=== PATIENT | male | born 1980 | race Caucasian/White ===

== ENCOUNTER 2018-04-21 08:22 | Emergency (ER) | payer BC ==
[2018-04-21 08:46] VITALS: BMI 26.5
[2018-04-21] MEDS ORDERED: SODIUM CHLORIDE 1,000 ML IV STA (09:12)
[2018-04-21] MEDS ORDERED: ACETAMINOPHEN 1000 MG/100 ML VIAL (NON FORMULARY) IVPB ONE (09:12)
--- NOTE | 2018-04-21 09:27 | PDOC ---
History of Present Illness - General Chief Complaint: Pain, Acute Stated Complaint: PAIN IN STOMACH/FEVER Time Seen by Provider: 04/21/18 08:53 History Source: Patient Exam Limitations: No Limitations - History of Present Illness Initial Comments: 04/21/18 09:21 Patient is 38M with no significant medical history here today complaining of 3 days of fever and lower abdominal pain. Patient endorses associated diarrhea with small amount of bright red blood and subjective fevers. Denies nausea, vomiting. Denies dysuria and testicular pain. Denies prior surgery. Last bowel movement yesterday. Denies flank pain. Past History - Past Medical History Allergies/Adverse Reactions: Allergies Allergy/AdvReac Type Severity Reaction Status Date / Time Iodinated Contrast- Oral and Allergy Mild Itching Verified 04/21/18 12:00 IV Dye iodine Allergy Itching Verified 04/21/18 12:00 shrimp Allergy Itching Verified 04/21/18 12:00 Home Medications: Ambulatory Orders NK [No Known Home Medication] 04/21/18 COPD: No - Suicide/Smoking/Psychosocial Hx Smoking History: Current some day smoker Number of Cigarettes Smoked Daily: 1 Information on smoking cessation initiated: Yes 'Breaking Loose' booklet given: 04/21/18 Hx Alcohol Use: No Drug/Substance Use Hx: No Review of Systems - Review of Systems Comments:: 04/21/18 09:27 GENERAL/CONSTITUTIONAL: +fever No chills. No weakness. HEAD, EYES, EARS, NOSE AND THROAT: No change in vision. No ear pain or discharge. No sore throat. CARDIOVASCULAR: No chest pain or shortness of breath RESPIRATORY: No cough, wheezing, or hemoptysis. GASTROINTESTINAL: No nausea, vomiting, diarrhea or constipation. GENITOURINARY: No dysuria, frequency, or change in urination. MUSCULOSKELETAL: No joint or muscle swelling or pain. No neck or back pain. SKIN: No rash NEUROLOGIC: No headache, vertigo, loss of consciousness, or change in strength/ sensation. ENDOCRINE: No increased thirst. No abnormal weight change HEMATOLOGIC/LYMPHATIC: No anemia, easy bleeding, or history of blood clots. ALLERGIC/IMMUNOLOGIC: No hives or skin allergy. *Physical Exam - Vital Signs Last Vital Signs Temp Pulse Resp BP Pulse Ox 99.8 F H 81 20 108/74 98 04/21/18 08:43 04/21/18 08:43 04/21/18 08:43 04/21/18 08:43 04/21/18 08:43 - Physical Exam Comments: 04/21/18 09:27 GENERAL: Awake, alert, and fully oriented, in no acute distress HEAD: No signs of trauma, normocephalic, atraumatic EYES: PERRLA, EOMI, sclera anicteric, conjunctiva clear ENT: Auricles normal inspection, hearing grossly normal, nares patent, oropharynx clear without exudates. Moist mucosa NECK: Normal ROM, supple, no lymphadenopathy, JVD, or masses LUNGS: No distress, speaks full sentences, clear to auscultation bilaterally HEART: Regular rate and rhythm, normal S1 and S2, no murmurs, rubs or gallops, peripheral pulses normal and equal bilaterally. ABDOMEN: Soft, +suprapubic tenderness, normoactive bowel sounds. No guarding, no rebound. No masses EXTREMITIES: Normal inspection, Normal range of motion, no edema. No clubbing or cyanosis. NEUROLOGICAL: Cranial nerves II through XII grossly intact. Normal speech, normal gait, no focal sensorimotor deficits SKIN: Warm, Dry, normal turgor, no rashes or lesions noted. ED Treatment Course - LABORATORY CBC & Chemistry Diagram: 04/21/18 09:40 04/21/18 09:30 Medical Decision Making - Medical Decision Making 04/21/18 09:28 Patient is 38M with no significant medical history here today complaining of abdominal pain and diarrhea. Vital signs show likely mild fever, otherwise normal and stable. Patient overall appears well. DDx includes, but is not limited to: colitis, uti, appendicitis, diverticulitis. Will evaluate with abdominal labs and ua. Will decide on necessity of CT based on UA results. 04/21/18 12:09 CT done after UA showed no infection. Patient found to have rash to face, no lip swelling or posterior oropharynx swelling. Lungs clear. Given benadryl and solumedrol. Placed on monitor. 04/21/18 13:10 CT shows colitis from terminal ileum to transverse colon. Patient denies having prior similar presentation or other symptoms of IBD. Will treat with cipro/ flagyl and discharge with PCP/GI follow up. Allergic reaction has resolved. *DC/Admit/Observation/Transfer Diagnosis at time of Disposition: Colitis - Discharge Dispostion Disposition: HOME Condition at time of disposition: Good Decision to Admit order: No - Referrals Referrals: Shailesh Begum MD [Primary Care Provider] - - Patient Instructions Printed Discharge Instructions: DI for Colitis Additional Instructions: Please return to the ED immediately if you are unable to take your medication. Please follow up with your primary care physician this week. You have also been given a referral for a GI doctor. Please call them today to make an appointment. Please return to the ED if you have any new, worsening or concerning symptoms. - Post Discharge Activity Forms/Work/School Notes: Back to Work
[2018-04-21] MEDS ORDERED: ACETAMINOPHEN INJECTION 100 ML IVPB ONE (09:43)
[2018-04-21 09:46] LABS: ADD RBC MORPHOLOGY YES; BASO % 0.4 % (0-2.0); EOS % 0.3 % (0-4.5); HEMATOCRIT 43.8 % (35.4-49); HEMOGLOBIN 13.6 GM/dL (11.7-16.9); LYMPH % 19.5 % (8-40); MCH 19.3 pg (25.7-33.7); MEAN CELL VOLUME 62.4 fl (80-96); MEAN PLT VOLUME 8.7 fl (7.5-11.1); MONO % 8.7 % (3.8-10.2); NEUT % 71.1 % (42.8-82.8); PLATELET COUNT 238 K/MM3 (134-434); RBC 7.02 M/mm3 (4.00-5.60); RDW 15.9 % (11.9-15.9); WHITE BLOOD COUNT 9.8 K/mm3 (4.0-10.0)
[2018-04-21 09:48] LABS: URINE APPEARANCE CLEAR; URINE BILIRUBIN NEGATIVE (<2.0 mg/dL); URINE COLOR YELLOW; URINE GLUCOSE (UA) NEGATIVE (NEGATIVE); URINE KETONE NEGATIVE (NEGATIVE); URINE LEUK ESTERASE NEGATIVE (NEGATIVE); URINE NITRITE NEGATIVE (NEGATIVE); URINE PROTEIN NEGATIVE (NEGATIVE); URINE UROBILINOGEN NEGATIVE mg/dL (0.2-1.0)
[2018-04-21 10:09] LABS: ANISOCYTOSIS 1+; PLATELET ESTIMATE ADEQUATE
[2018-04-21 10:10] LABS: ANION GAP 10 MMOL/L (8-16); BLOOD UREA NITROGEN 13 mg/dL (7-18); CALCIUM 8.7 mg/dL (8.5-10.1); CHLORIDE 105 mmol/L (98-107); CO2 27 mmol/L (21-32); CREATININE 0.8 mg/dL (0.55-1.3); GLUCOSE,RANDOM 97 mg/dL (74-106); LIPASE 100 U/L (73-393); POTASSIUM 3.9 mmol/L (3.5-5.1); SGOT/AST 24 U/L (15-37); SGPT/ALT 37 U/L (13-61); SODIUM 142 mmol/L (136-145)
[2018-04-21 10:11] LABS: ALK PHOS 65 U/L (45-117); BILIRUBIN,TOTAL 0.4 mg/dL (0.2-1.0); TOT PROT 7.6 g/dl (6.4-8.2)
[2018-04-21] MEDS ORDERED: methylPREDNISolone NA SUCC 125 MG/2 ML VIAL ONE (11:37)
[2018-04-21] MEDS ORDERED: methylPREDNISolone NA SUCC 125 MG/2 ML VIAL IVPB ONE (11:37)
[2018-04-21 12:05] VITALS: TEMP 99.1
[2018-04-21] MEDS ORDERED: metroNIDAZOLE 500 MG TABLET PO ONE (13:17)
[2018-04-21] MEDS ORDERED: metroNIDAZOLE 250 MG TABLET ONE (13:22)
[2018-04-21 13:25] VITALS: BP 116/71; PULSE 75
== END 2018-04-21 13:25 | disposition home or self-care (01) ==
LOC: JER 08:22
PROC: 3E033NZ Introduction of Analgesics, Hypnotics, Sedatives into Peripheral Vein, Percutaneous Approach (ICD-10-PCS; principal; 2018-04-21)
PROC: 3E033GC Introduction of Other Therapeutic Substance into Peripheral Vein, Percutaneous Approach (ICD-10-PCS; 2018-04-21)
PROC: 3E0337Z Introduction of Electrolytic and Water Balance Substance into Peripheral Vein, Percutaneous Approach (ICD-10-PCS; 2018-04-21)
DX: K52.9 Noninfective gastroenteritis and colitis, unspecified (principal)
CPT/HCPCS: 36415; 74177-TC; 80053; 81003; 83690; 85025; 99285-25; J0131; J7030